=== PATIENT | female | born 1965 | race Caucasian/White ===

== ENCOUNTER 2016-07-17 14:05 | Emergency (ER) | payer MEDICARE, OTHER, SELFPAY ==
[2016-07-17 14:37] LABS: #Basophils 0.1 thou/uL (0.0-0.2); #Eosinphils 0.2 thou/uL (0.0-0.7); #Lymphocytes 2.6 thou/uL (1.20-3.40); #Monocytes 0.7 thou/uL (0.11-0.59); #Neutrophils 4.3 thou/uL (1.40-6.50); %Eosinophils 2.3 % (0.0-10.0); %Lymphocytes 33.5 % (21.0-51.0); %Monocytes 8.5 % (0.0-10.0); %Neutrophils 54.7 % (42.0-75.0); Hemoglobin 13.9 g/dL (12.0-16.0); Mean Corpuscular HGB CONC 33.6 g/dL (32.0-36.0); Mean Corpuscular Hemoglobin 29.7 pg (27.0-31.0); Mean Corpuscular Volume 88.3 fl (81.0-99.0); Mean Platelet Volume 10.2 fL (7.4-10.4); Platelet Count 238 thou/uL (130-400); RBC Distribution Width 11.8 % (11.5-14.5); Red Blood Cell (RBC) Count 4.68 mill/uL (4.20-5.40); White Blood Cell (WBC) Count 7.9 thou/uL (4.8-10.8)
[2016-07-17] MEDS ORDERED: Nitroglycerin 2% Ointment 1 INCH/1 GM Packet ONE (14:52)
--- NOTE | 2016-07-17 14:53 | RAD ---
AP CHEST: History: Chest pain. Date: 07-17-16 Comparison: 10-24-13 FINDINGS: AP view of the chest demonstrates the lungs to be well aerated. No evidence of active intrathoracic disease seen. No evidence of effusions, pneumonia, or pneumothorax is seen. IMPRESSION: Unremarkable AP view chest. POS: MED
[2016-07-17 14:58] LABS: CKMB 1.3 ng/mL (0-6.6); Troponin I Less than 0.010 ng/mL (< 0.028)
[2016-07-17 14:59] LABS: ALT (SGPT) 49 U/L (0-55); AST (SGOT) 31 U/L (5-34); Albumin 4.4 g/dL (3.5-5.0); Alkaline Phosphatase 112 U/L (40-150); Anion Gap 19 mmol/L (10-20); BUN (Urea Nitrogen) 16 mg/dL (9.8-20.1); Bilirubin, Total 0.9 mg/dL (0.2-1.2); Calc. Creatinine Clearance 0 mL/min (70-130); Calcium 10.4 mg/dL (7.8-10.44); Carbon Dioxide 23 mmol/L (22-29); Chloride 103 mmol/L (98-107); Estimated GFR-MDRD 59; Globulin 2.9 g/dL (2.4-3.5); Glucose 101 mg/dL (70-105); Magnesium 1.9 mg/dL (1.6-2.6); Potassium 3.7 mmol/L (3.5-5.1); Protein, Total 7.3 g/dL (6.0-8.3); Sodium 141 mmol/L (136-145)
[2016-07-17] MEDS ORDERED: Morphine Sulfate 2 MG/ML SYRINGE ONE (16:07)
--- NOTE | 2016-07-17 17:44 | ERRECORD ---
[facility] EMERGENCY RECORD HPI CHEST PAIN (14:23 ABUS) CHIEF COMPLAINT: Patient presents for evaluation of chest pain, ongoing. HISTORIAN: History provided by patient, History provided by patient's spouse, 51 yr old F with PMH of HLD who comes in with reports of ongoing chest pain (pressure/ache) that started today around 1-1:30 while she was sleeping and radiates to the neck, shoulder, left arm, but is not associated with N/V, SOB or sweating. She took 324 mg ASA and tried 3 NTG which brought pain from 8 - 6/10. + FHx of Mom and dad with early CVD < 55 yrs of age. LOCATION: Symptoms are localized, most severe in substernal area, Pain radiates, Radiation to the jaw, Radiation to the neck, Radiation to the shoulder. QUALITY: Pain is dull in nature, described as pressure-like. SEVERITY: Currently symptoms are moderate, Maximum severity of pain rated as 8/10, Current severity of pain rated as 6/10. TIME COURSE: Sudden onset of symptoms, Symptoms are improving. ASSOCIATED WITH: No associated symptoms. EXACERBATED BY: Patient's condition exacerbated by nothing. RELIEVED BY: Patient's condition relieved by nothing. RISK FACTORS: Coronary artery disease risk factors, no diabetes, include family history, include high cholesterol. HEART SCORE: Patients history is Highly Suspicious (2), Patients ECG is normal (0), Patients age is greater than 45 and less than 65 (1), Patient has equal to or greater than 3 risk factors or history of atherosclerotic disease (2), Patients Troponin is equal to or less than 1 times the normal limit (0), Total 5. WELLS CRITERIA FOR PE: No clinical signs and symptoms of a DVT (0), Patient does not have, or is likely to not have, a primary diagnosis of PE (0), Patient's heart rate is less than 100 (0), Patient has no history of immobilization within 3 days, nor any surgical history within the past 4 weeks (0), Patient has not had an objectively diagnosed PE or DVT previously (0), Patient does not have hemoptysis (0), Patient has not had treatment for malignancy within the last 6 months, nor palliative (0), Total 0. ROS (14:26 ABUS) CONSTITUTIONAL: Negative constitutional review of systems, Historian denies chills, denies fever. EYES: Negative eye review of systems, Historian denies eye pain, denies vision changes. ENT: Negative ears, nose, throat review of systems, Historian denies rhinorrhea, denies sore throat, denies voice changes. CARDIOVASCULAR: Historian reports chest pain, substernal, radiation to, the neck, &a-1R&a+25V*p+0X*x1789I*c202B*c15G*c2P*p-0X&a-25V&a+1R Name: Beulah uQiroz : 1965 F51 MedRec: [id number] AcctNum: [id number] Prepared: SatJul 17, 2016 18:00 by Interface Page 1 of 5 pMD [facility] EMERGENCY RECORD the jaw, the back, Historian denies diaphoresis, denies dyspnea on exertion, denies edema, denies palpitations. RESPIRATORY: Negative respiratory review of systems, Historian denies cough, denies shortness of breath. GI: Negative gastrointestinal review of systems, Historian denies abdominal pain, denies constipation, denies diarrhea, denies nausea, denies vomiting. GENITOURINARY FEMALE: Negative genitourinary review of systems, Historian denies dysuria, denies frequency. MUSCULOSKELETAL: Negative musculoskeletal review of systems, Historian denies back pain, denies fall, denies injury. SKIN: Negative skin review of systems, Historian denies rash, denies skin changes. NEUROLOGIC: Negative neurologic review of systems, Historian denies headache, denies mental status changes, denies paralysis, denies paresthesias, denies sensory changes. HEMO/LYMPHATIC: Normal hematologic/lymphatic system review, Historian denies abnormal blood clotting. ALLERGIC/IMMUNOLOGIC: Normal allergy/immunologic system review, Historian denies frequent infections. PAST MEDICAL HISTORY (14:16 AWAT) MEDICAL HISTORY: Past medical history includes history of hyperlipidemia, high cholesterol, Past medical history includes neurological disease, generalized seizures, Past medical history includes renal disease, kidney stone(s). RIGHT CAROTID STENOSIS. FEMALE SURGICAL HISTORY: Surgical history of appendectomy, Surgical history of cholecystectomy, Surgical history of tonsillectomy, prior fusions of c- spine and t-spine. PSYCHIATRIC HISTORY: Notes: DEPRESSION, No previous psychiatric history. SOCIAL HISTORY: Patient denies alcohol use, Patient denies drug use, Patient has no smoking history. KNOWN ALLERGIES Penicillins: Reaction: Rash CURRENT MEDICATIONS No recorded medications VITAL SIGNS VITAL SIGNS: BP: 140/78, Pulse: 93, Resp: 18, Temp: 98.9 (Tympanic), Pain: 6 (Constant), O2 sat: 94 on Room Air, Time: 07/17/2016 14:14. (14:14 AWAT) BP: 137/72, Pulse: 84, Resp: 18, Pain: 6, O2 sat: 95 on Room Air, Time: 07/17/2016 14:30. (14:30 AWAT) BP: 134/72, Pulse: 83, Resp: 16, Pain: 5 (Constant), O2 sat: 98 on 2L Oxygen, Time: 07/17/2016 14:45. (14:45 AWAT) BP: 127/77, Pulse: 88, Resp: 17, Pain: 5, O2 sat: 99 on 2L Oxygen, Time: 07/17/2016 15:00. (15:00 AWAT) &a-1R&a+25V*p+0X*p7400D*c202B*c15G*c2P*p-0X&a-25V&a+1R Name: Beulah Quiroz : 1965 F51 MedRec: [id number] AcctNum: [id number] Prepared: Fan Jul 17, 2016 18:00 by Interface Page 2 of 5 pMD [facility] EMERGENCY RECORD BP: 142/74, Pulse: 94, Resp: 20, Pain: 5 (Constant), O2 sat: 98 on Room Air, Time: 07/17/2016 15:15. (15:15 AWAT) BP: 119/73, Pulse: 95, Resp: 16, Temp: 98.0 (Tympanic), Pain: 2 (Constant), O2 sat: 99 on 2L Oxygen, Time: 07/17/2016 15:30. (15:30 AWAT) Pain: 0, O2 sat: 99 on 2L, Time: 07/17/2016 17:20. (17:20 AWAT) Pain: 0, Time: 07/17/2016 16:00. (16:00 AWAT) PHYSICAL EXAM (14:26 ABUS) CONSTITUTIONAL: Vital signs reviewed, Patient afebrile, Pulse normal, Blood pressure normal, Respiratory rate normal, Patient appears non toxic, Patient appears pain free, Patient alert and oriented to person, place and time. HEAD: Head exam normal, Head exam included findings of head atraumatic, normocephalic. EYES: Eye exam normal, Eye exam included findings of eyelids normal to inspection, Pupils equally round and reactive to light, Extraocular muscles intact, no nystagmus. ENT: ENT exam normal, Ear exam normal, external ear normal, tympanic membranes normal, no bleeding, Pharynx exam normal, Uvula exam normal, Tonsil exam normal, Mouth exam normal, mucous membranes moist, teeth normal. NECK: Neck exam normal, Neck exam included findings of normal range of motion, Trachea midline, no meningeal signs, no cervical adenopathy, no tenderness. RESPIRATORY CHEST: Respiratory and chest exam normal, Respiratory exam included findings of no respiratory distress, Breath sounds clear. CARDIOVASCULAR: Cardiovascular assessment normal, Cardiovascular exam included findings of heart rate regular rate and rhythm, Heart sounds normal. ABDOMEN FEMALE: Abdominal exam included findings of abdomen nontender, Bowel sounds normal, no distension, no mass, no pulsatile masses, no peritoneal signs, no rigidity, no guarding, no rebound, Rovsing's sign absent. BACK: Back exam normal, Back exam included findings of normal inspection, range of motion normal, no tenderness. UPPER EXTREMITY: Upper extremity exam normal, Upper extremity exam included findings of inspection normal, Range of motion normal, Motor strength normal, Sensation intact, Radial pulse normal. LOWER EXTREMITY: Lower extremity exam normal, Lower extremity exam included findings of inspection normal, Range of motion normal, Motor strength normal, Sensation intact, Posterior tibial pulse normal, Pedal pulse normal. NEURO: Neuro exam normal, Neuro exam findings include patient oriented to person, place and time, Speech normal, Gait normal, Cranial nerves intact, no focal motor deficits, no focal sensory deficits. SKIN: Skin exam normal, Skin exam included findings of skin warm, dry, and normal in color, no rash. &a-1R&a+25V*p+0X*f0418P*c202B*c15G*c2P*p-0X&a-25V&a+1R Name: Beulah Quiroz : 1965 F51 MedRec: [id number] AcctNum: [id number] Prepared: Fan Jul 17, 2016 18:00 by Interface Page 3 of 5 pMD [facility] EMERGENCY RECORD PSYCHIATRIC: Psychiatric exam normal, Normal affect. EKG INTERPRETATION (14:22 ABUS) 12 LEAD EKG INTERPRETATION: 12 lead EKG interpreted by Emergency Department Physician at time of study, 12 lead EKG shows normal sinus rhythm, Rate (beats per minute): 87, with no ectopics, Interpretation: normal EKG, Conduction normal, ST segments normal, T waves normal, [place] normal, Clinical impression: Normal EKG. RADIOLOGYINTERPRETATION (16:02 ABUS) CHEST: Chest films negative, no infiltrates, no pneumothorax, no hemothorax, no masses, no cardiomegaly, no congestive heart failure, no effusion, no free air. EMBEDDED SOFTWARE DEVELOPMENT ENGINEER: Preliminary review of x-rays by, ED Physician, Radiologist. MEDICATION ADMINISTRATION SUMMARY Drug Name: morphine (PF) injection, Dose Ordered: 2 mg, Route: IV Push, Status: Given, Time: 16:10 07/17/2016, Drug Name: Nitro-Bid transdermal, Dose Ordered: 1 inch, Route: Topical, Status: Given, Time: 14:55 07/17/2016, Drug Name: morphine (PF) injection, Dose Ordered: 4 mg, Route: IV Push, Status: Given, Time: 14:55 07/17/2016, Detailed record available in Medication Service section. DOCTOR NOTES (14:30 ABUS) TEXT: 51 yr old F with PMH of HLD who comes in with reports of ongoing chest pain (pressure/ache) that started today around 1-1:30 while she was sleeping and radiates to the neck, shoulder, left arm, but is not associated with N/V, SOB or sweating. EXAM: Mild distress DDX: Acute Coronary Syndrome, Unstable Angina, NSTEMI, Pericarditis, Myocarditis, Pulmonary Embolism, Musculoskeletal Chest Wall Pain, Pleuritis. PLAN: IV, IV Fluids, CBC, CMP, BNP, Troponins, UA, NTG, Antiemetics, Analgesics, ECG, CXR, Analgesics as needed. Aspirin already taken [employer] SUPERINTENDENT by patient. Final Dispo: Transfer to [place] Level of Complexity / Medical Decision Making: Moderate. PROBLEM LIST No recorded problems DIAGNOSIS (17:36 ABUS) FINAL: PRIMARY: Chest pain. PRESCRIPTION No recorded prescriptions &a-1R&a+25V*p+0X*[id number]*c202B*c15G*c2P*p-0X&a-25V&a+1R Name: Beulah Quiroz : 1965 1 MedRec: [id number] AcctNum: [id number] Prepared: SatJul 17, 2016 18:00 by Interface Page 4 of 5 pMD [facility] EMERGENCY RECORD DISPOSITION PATIENT: Disposition Type: Transfer, Disposition: Transfer to [facility], Disposition Transport: Ambulance, Condition: Good. (17:36 ABUS) Patient left the department. (17:55 AWAT) Aceves: ABUS=MD Nash, Clem AWAT=RENEA Smith, Bruce &a-1R&a+25V*p+0X*[id number]*c202B*c15G*c2P*p-0X&a-25V&a+1R Name: Beulah Quiroz : 1965 [facility] MedRec: [id number] AcctNum: [id number] Prepared: SatJul 17, 2016 18:00 by Interface Page 5 of 5 pMD MTDD
--- NOTE | 2016-07-17 17:49 | PICIS ---
HEALTH SYSTEM EMERGENCY RECORD COMMUNICATIONS COMMUNICATIONS: Notes: TRANSFER PROCESS BEGAN NOW WITH PT REQUESTING [facility]. (15:20 AWAT) Notes: PT'S ER RECORD & FACE SHEET FAXED TO [facility] NOW PER THEIR REQUEST... (15:42 AWAT) Notes: STILL AWAITING CALLBACK FROM [facility]. (16:46 AWAT) Notes: [facility] REFUSED PT DUE TO HER ONLY HAVING MEDICARE PART A. DISCUSSED W PT. CHANGED DESTINATIONS TO [facility] ER.. (16:50 AWAT) Notes: DR COBURN AT [facility] ER IN [place] ACCEPTS PT FOR TRANSFER AT THIS TIME. (16:58 AWAT) TRIAGE (SatJul 17, 2016 14:10 AWAT) TRIAGE NOTES: CP-SUBSTERNAL & RADIATING TO LEFT JAW & LEFT ARM THAT STARTED AT 1315 TODAY. SHE TOOK 325MG ASA, THEN 3 NTG TABLETS WITHOUT RELIEF. PAIN 6 OR 7/10. (SatJul 17, 2016 14:10 AWAT) PATIENT: NAME: Beulah Quiroz, AGE: 51, GENDER: female, : Sat1965, TIME OF GREET: SatJul 17, 2016 14:05, PREFERRED LANGUAGE: Frisian, ETHNICITY: Not or , FALL RISK: YES, ECODE BILLING MAP: [facility], SSN: [id number], Zip Code: [address], KG WEIGHT: 81.65 (est.), PHONE: , , , PERSON ID: [id number], PCP: GEORGE . (SatJul 17, 2016 14:10 AWAT) COMPLAINT: HIGH RISK COMPLAINT: CHEST PAIN. (SatJul 17, 2016 14:10 AWAT) ADMISSION: URGENCY: 3 Urgent, ADMISSION SOURCE: Home, TRANSPORT: Walk-in, BED: TRIAGE. (SatJul 17, 2016 14:10 AWAT) IMMUNIZATIONS: Flu vaccine up to date, Date of immunization: 2015, Tetanus immunization up to date, Date of immunization: 2012. (14:16 AWAT) SIRS SCORING: Heart Rate 55-109 (0), Temp range 96.8-101.1 (0), respiratory rate 12-24 (0), Mental Status altered: no (0). (14:16 AWAT) TREATMENTS IN PROGRESS: Medications Given, 325MG ASA, AND 3 NTG TABLETS AT HOME. (14:16 AWAT) PROVIDERS: TRIAGE NURSE: Bruce Smith RN. (SatJul 17, 2016 14:10 AWAT) PREVIOUS VISIT ALLERGIES: Penicillins. (SatJul 17, 2016 14:10 AWAT) Penicillins. (14:16 AWAT) KNOWN ALLERGIES Penicillins: Reaction: Rash CURRENT MEDICATIONS No recorded medications VITAL SIGNS VITAL SIGNS: BP: 140/78, Pulse: 93, Resp: 18, Temp: 98.9 (Tympanic), Pain: 6 (Constant), O2 sat: 94 on Room Air, Time: &a-1R&a+25V*p+0X*b9790I*c202B*c15G*c2P*p-0X&a-25V&a+1R Name: Beulah Quiroz : 1965 F51 MedRec: [id number] AcctNum: [id number] Prepared: SatJul 17, 2016 18:07 by Interface Page 1 of 12 [facility] EMERGENCY RECORD 07/17/2016 14:14. (14:14 AWAT) BP: 137/72, Pulse: 84, Resp: 18, Pain: 6, O2 sat: 95 on Room Air, Time: 07/17/2016 14:30. (14:30 AWAT) BP: 134/72, Pulse: 83, Resp: 16, Pain: 5 (Constant), O2 sat: 98 on 2L Oxygen, Time: 07/17/2016 14:45. (14:45 AWAT) BP: 127/77, Pulse: 88, Resp: 17, Pain: 5, O2 sat: 99 on 2L Oxygen, Time: 07/17/2016 15:00. (15:00 AWAT) BP: 142/74, Pulse: 94, Resp: 20, Pain: 5 (Constant), O2 sat: 98 on Room Air, Time: 07/17/2016 15:15. (15:15 AWAT) BP: 119/73, Pulse: 95, Resp: 16, Temp: 98.0 (Tympanic), Pain: 2 (Constant), O2 sat: 99 on 2L Oxygen, Time: 07/17/2016 15:30. (15:30 AWAT) Pain: 0, O2 sat: 99 on 2L, Time: 07/17/2016 17:20. (17:20 AWAT) Pain: 0, Time: 07/17/2016 16:00. (16:00 AWAT) NURSING ASSESSMENT: CARDIOVASCULAR (14:30 AWAT) CONSTITUTIONAL: Simple assessment performed, Patient arrives ambulatory, Gait steady, History obtained from patient, Patient appears comfortable, Patient cooperative, Patient alert, Oriented to person, place and time, Skin warm, Skin dry, Skin normal in color, Mucous membranes pink, Mucous membranes moist, Patient is well-groomed, Patient complains of CHEST PAIN RADIATING TO LEFT JAW & LEFT ARM. PAIN: aching pain, substernal, to the left arm, to the jaw, Onset of pain 07/17/2016 1315, constant, on a scale 0-10 patient rates pain as 6, UNRELIEVED BY 3 NITRO'S AND ASPIRIN 325MG AT HOME. CARDIOVASCULAR: Cardiovascular assessment findings include heart rate normal, Heart rhythm normal sinus, Heart sounds normal, S1, S2, Left radial pulse +3(easily palpated, considered normal), Right radial pulse +3(easily palpated, considered normal), Left dorsalis pedis pulse +3(easily palpated, considered normal), Right dorsalis pedis pulse +3(easily palpated, considered normal). RESPIRATORY/CHEST: Breath sounds clear, Respiratory assessment findings include respiratory effort easy, Respirations regular, Conversing normally, Neck and chest exam findings include trachea midline, Chest expansion equal, Chest movement symmetrical. NOTES: Emotional support needed and given, Patient tolerated procedure well. SAFETY: Side rails up, Cart/Stretcher in lowest position, Family at bedside, Call light within reach, Hospital ID band on, Physician notified of above findings. NURSING PROCEDURE: EKG CHART (14:15 AWAT) PATIENT IDENTIFIER: Patient actively involved in identification process, Patient's identity verified by patient stating name, Patient's identity verified by patient stating date, Patient's identity verified by hospital ID bracelet, Patient's identity verified by family member. &a-1R&a+25V*p+0X*e4800V*c202B*c15G*c2P*p-0X&a-25V&a+1R Name: Beulah Quiroz : 1965 F51 MedRec: [id number] AcctNum: [id number] Prepared: Fan Jul 17, 2016 18:07 by Interface Page 2 of 12 [facility] EMERGENCY RECORD EKG: EKG indicated for complaint of chest pain. FOLLOW-UP: After procedure, EKG for interpretation given to Dr. TURNER. NOTES: Patient tolerated procedure well. SAFETY: Side rails up, Cart/Stretcher in lowest position, Family at bedside, Call light within reach, Hospital ID band on, Physician notified of above findings. NURSING PROCEDURE: IV PATIENT IDENITIFIER: Patient actively involved in identification process, Patient's identity verified by patient stating name, Patient's identity verified by patient stating date, Patient's identity verified by hospital ID bracelet, Patient's identity verified by family member. (14:30 AWAT) IV SITE 1: IV therapy indicated for CHEST PAIN, IV established, to the right antecubital, using a 20 gauge catheter, in one attempt, IV site prepped with chloraprep, Saline lock established, Flushed with normal saline (mls): 10, Labs drawn at time of placement, labeled in the presence of the patient and sent to lab. (14:30 AWAT) FOLLOW-UP SITE 1: After procedure, sterile transparent dressing applied, Notes: INTACT FOR TRANSPORT. PATENT. (17:20 AWAT) NOTES: Patient tolerated procedure well. (14:30 AWAT) SAFETY: Side rails up, Cart/Stretcher in lowest position, Family at bedside, Call light within reach, Hospital ID band on, Physician notified of above findings. (14:30 AWAT) NURSING PROCEDURE: TRANSFER (17:20 AWAT) TRANSFER: Reason for transfer need for specialized care, Diagnosis: CP, R/O ACS, Accepting institution: [facility] ER, Accepting physician: ALMAS, Referring physician: YUE, Transported by urgent ambulance, accompanied by emergency medical services personnel, Report called to receiving facility, BRIANNA, Provided opportunity to answer questions, Summary of Care printed, Copy of patient record prepared for receiving facility, Patient consent for transfer signed, Family member contacted, ARCHANA-SPOUSE. BELONGINGS: Belongings remain with patient, Valuables remain with patient, Notes: SPOUSE TOOK HER CLOTHES & SHOES HOME. PT KEPT HER PHONE. EQUIPMENT WITH PATIENT: Equipment with patient at time of transfer materials management manager, Saline lock intact and patent at time of transfer, Equipment with patient at time of transfer O2. NOTES: Patient tolerated procedure well. SAFETY: Side rails up, Cart/Stretcher in lowest position, Family at bedside, Call light within reach, Hospital ID band on, Physician notified of above findings. VITAL SIGNS: Time: 1720. Pain: 0, O2 sat: 99, on: 2L, Time: 1720. ORDER DETAILS &a-1R&a+25V*p+0X*k1845F*c202B*c15G*c2P*p-0X&a-25V&a+1R Name: Beulah Quiroz : 1965 F51 MedRec: [id number] AcctNum: [id number] Prepared: SatJul 17, 2016 18:07 by Interface Page 3 of 12 [facility] Order Name: B type Natriuretic Peptide, Status: Active, Time: 14:12 07/17/2016, User: ABUS, - Ordered for: MD Turner Anthony, - Entered by: MD Turner Anthony - SatJul 17, 2016 14:12, - Quantity: 1, Order Name: [employer] ED, Status: Done, Time: 14:16 07/17/2016, User: AWAT, - Ordered for: MD Turner Anthony, - Entered by: MD Turner Anthony - SatJul 17, 2016 14:12, - Quantity: 1, Order Name: Cardiac Profile w/CKMB & Troponin - I, Status: Active, Time: 14:12 07/17/2016, User: ABUS, - Ordered for: MD Turner Anthony, - Entered by: MD Turner Anthony - SatJul 17, 2016 14:12, - Quantity: 1, Order Name: CBC with Differential, Status: Active, Time: 14:12 07/17/2016, User: ABUS, - Ordered for: MD Turner Anthony, - Entered by: MD Turner Anthony - SatJul 17, 2016 14:12, - Quantity: 1, Order Name: Comprehensive Metabolic Panel, Status: Active, Time: 14:12 07/17/2016, User: ABUS, - Ordered for: MD Turner Anthony, - Entered by: MD Turner Anthony - fadia Jul 17, 2016 14:12, - Quantity: 1, Order Name: EKG 12 Lead in Emergency Room, Status: Active, Time: 14:12 07/17/2016, User: ABUS, - Ordered for: MD Turner Anthony, - Entered by: MD Turner Anthony - fadia Jul 17, 2016 14:12, - Quantity: 1, Order Name: Magnesium, Status: Active, Time: 14:12 07/17/2016, User: ABUS, - Ordered for: MD Turner Anthony, - Entered by: MD Turner Anthony - Tue Jul 17, 2016 14:12, - Quantity: 1, Order Name: PTT, Status: Active, Time: 14:12 07/17/2016, User: ABUS, - Ordered for: MD Turner Anthony, - Entered by: MD Turner Anthony - fadia Jul 17, 2016 14:12, - Quantity: 1, Order Name: SALINE LOCK, Status: Done, Time: 14:17 07/17/2016, User: AWAT, - Ordered for: MD Turner Anthony, - Entered by: MD Turner Anthony - fadia Jul 17, 2016 14:12, - Quantity: 1, Order Name: XR Chest 1 View Portable, Status: Active, Time: 14:12 07/17/2016, User: AB, - Ordered for: MD Turner Anthony, - Entered by: MD Turner Anthony - fadia Jul 17, 2016 14:12, - Quantity: 1. &a-1R&a+25V*p+0X*g0082G*c202B*c15G*c2P*p-0X&a-25V&a+1R Name: Beulah Quiroz : 1965 F51 MedRec: [id number] AcctNum: [id number] Prepared: SatJul 17, 2016 18:07 by Interface Page 4 of 12 [facility]ORD MEDICATION ADMINISTRATION SUMMARY Drug Name: morphine (PF) injection, Dose Ordered: 2 mg, Route: IV Push, Status: Given, Time: 16:10 07/17/2016, Drug Name: Nitro-Bid transdermal, Dose Ordered: 1 inch, Route: Topical, Status: Given, Time: 14:55 07/17/2016, Drug Name: morphine (PF) injection, Dose Ordered: 4 mg, Route: IV Push, Status: Given, Time: 14:55 07/17/2016, Detailed record available in Medication Service section. MEDICATION SERVICE morphine (PF) injection: Order: morphine (PF) injection (morphine sulfate/preservative free) - Dose: 4 mg : IV Push Schedule: Now Ordered by: Clem Turner MD Entered by: Clem Turner MD SatJul 17, 2016 14:22 , Acknowledged by: Bruce Smith RN SatJul 17, 2016 14:50 Documented as given by: Bruce Smith RN Jul 17, 2016 14:55 Patient, Medication, Dose, Route and Time verified prior to administration. Amount given: 4MG, IV SITE #1 IVP, initial medication, Slowly, Catheter placement confirmed via flush prior to administration, IV site without signs or symptoms of infiltration during medication administration, No swelling during administration, No drainage during administration, IV flushed after administration, Correct patient, time, route, dose and medication confirmed prior to administration, Patient advised of actions and side-effects prior to administration, Allergies confirmed and medications reviewed prior to administration, Administered by AW, Patient in position of comfort, Side rails up, Cart in lowest position, Family at bedside. morphine (PF) injection: Order: morphine (PF) injection (morphine sulfate/preservative free) - Dose: 2 mg : IV Push Schedule: Now Ordered by: Clem Turner MD Entered by: Clem Turner MD SatJul 17, 2016 16:03 , Acknowledged by: Bruce Smith RN SatJul 17, 2016 16:07 Documented as given by: Bruce Smith RN SatJul 17, 2016 16:10 Patient, Medication, Dose, Route and Time verified prior to administration. Amount given: 2MG, IV SITE #1 IVP, repeat same medication, Slowly, Catheter placement confirmed via flush prior to administration, IV site without signs or symptoms of infiltration during medication administration, No swelling during administration, No drainage during administration, IV flushed after administration, Correct patient, time, route, dose and medication confirmed prior to administration, Patient advised of actions and side-effects prior to administration, Allergies confirmed and medications reviewed prior to administration, Administered by YENY MEIER, Patient in position of comfort, Side rails up, Cart in lowest position, Family at bedside. Nitro-Bid transdermal: Order: Nitro-Bid transdermal &a-1R&a+25V*p+0X*q2317S*c202B*c15G*c2P*p-0X&a-25V&a+1R Name: Beulah Quiroz : 1965 F51 MedRec: [id number] AcctNum: [id number] Prepared: SatJul 17, 2016 18:07 by Interface Page 5 of 12 [facility] EMERGENCY [facility]ORD (nitroglycerin) - Dose: 1 inch : Topical Schedule: Now Ordered by: Clem Turner MD Entered by: Clem Turner MD SatJul 17, 2016 14:23 , Acknowledged by: Bruce Smith RN SatJul 17, 2016 14:50 Documented as given by: Bruce Smith RN Jul 17, 2016 14:55 Patient, Medication, Dose, Route and Time verified prior to administration. Amount given: 1 INCH, Skin cleansed prior to administration, Shaving required prior to administration, Correct patient, time, route, dose and medication confirmed prior to administration, Patient advised of actions and side-effects prior to administration, Allergies confirmed and medications reviewed prior to administration, Administered by YENY MEIER, Advised not to ambulate without assistance, Patient in position of comfort, Side rails up, Cart in lowest position, Family at bedside. HPI CHEST PAIN (14:23 ABUS) CHIEF COMPLAINT: Patient presents for evaluation of chest pain, ongoing. HISTORIAN: History provided by patient, History provided by patient's spouse, 51 yr old F with PMH of HLD who comes in with reports of ongoing chest pain (pressure/ache) that started today around 1-1:30 while she was sleeping and radiates to the neck, shoulder, left arm, but is not associated with N/V, SOB or sweating. She took 324 mg ASA and tried 3 NTG which brought pain from 8 - 12/01. + FHx of Mom and dad with early CVD < 55 yrs of age. LOCATION: Symptoms are localized, most severe in substernal area, Pain radiates, Radiation to the jaw, Radiation to the neck, Radiation to the shoulder. QUALITY: Pain is dull in nature, described as pressure-like. SEVERITY: Currently symptoms are moderate, Maximum severity of pain rated as 8/10, Current severity of pain rated as 6/10. TIME COURSE: Sudden onset of symptoms, Symptoms are improving. ASSOCIATED WITH: No associated symptoms. EXACERBATED BY: Patient's condition exacerbated by nothing. RELIEVED BY: Patient's condition relieved by nothing. RISK FACTORS: Coronary artery disease risk factors, no diabetes, include family history, include high cholesterol. HEART SCORE: Patients history is Highly Suspicious (2), Patients ECG is normal (0), Patients age is greater than 45 and less than 65 (1), Patient has equal to or greater than 3 risk factors or history of atherosclerotic disease (2), Patients Troponin is equal to or less than 1 times the normal limit (0), Total 5. WELLS CRITERIA FOR PE: No clinical signs and symptoms of a DVT &a-1R&a+25V*p+0X*y6944Z*c202B*c15G*c2P*p-0X&a-25V&a+1R Name: Beulah Quiroz : 1965 F51 MedRec: [id number] AcctNum: [id number] Prepared: Fan Jul 17, 2016 18:07 by Interface Page 6 of 12 [facility]ORD (0), Patient does not have, or is likely to not have, a primary diagnosis of PE (0), Patient's heart rate is less than 100 (0), Patient has no history of immobilization within 3 days, nor any surgical history within the past 4 weeks (0), Patient has not had an objectively diagnosed PE or DVT previously (0), Patient does not have hemoptysis (0), Patient has not had treatment for malignancy within the last 6 months, nor palliative (0), Total 0. ROS (14:26 ABUS) CONSTITUTIONAL: Negative constitutional review of systems, Historian denies chills, denies fever. EYES: Negative eye review of systems, Historian denies eye pain, denies vision changes. ENT: Negative ears, nose, throat review of systems, Historian denies rhinorrhea, denies sore throat, denies voice changes. CARDIOVASCULAR: Historian reports chest pain, substernal, radiation to, the neck, the jaw, the back, Historian denies diaphoresis, denies dyspnea on exertion, denies edema, denies palpitations. RESPIRATORY: Negative respiratory review of systems, Historian denies cough, denies shortness of breath. GI: Negative gastrointestinal review of systems, Historian denies abdominal pain, denies constipation, denies diarrhea, denies nausea, denies vomiting. GENITOURINARY FEMALE: Negative genitourinary review of systems, Historian denies dysuria, denies frequency. MUSCULOSKELETAL: Negative musculoskeletal review of systems, Historian denies back pain, denies fall, denies injury. SKIN: Negative skin review of systems, Historian denies rash, denies skin changes. NEUROLOGIC: Negative neurologic review of systems, Historian denies headache, denies mental status changes, denies paralysis, denies paresthesias, denies sensory changes. HEMO/LYMPHATIC: Normal hematologic/lymphatic system review, Historian denies abnormal blood clotting. ALLERGIC/IMMUNOLOGIC: Normal allergy/immunologic system review, Historian denies frequent infections. PAST MEDICAL HISTORY (14:16 AWAT) MEDICAL HISTORY: Past medical history includes history of hyperlipidemia, high cholesterol, Past medical history includes neurological disease, generalized seizures, Past medical history includes renal disease, kidney stone(s). RIGHT CAROTID STENOSIS. FEMALE SURGICAL HISTORY: Surgical history of appendectomy, Surgical history of cholecystectomy, Surgical history of tonsillectomy, prior fusions of c- spine and t-spine. PSYCHIATRIC HISTORY: Notes: DEPRESSION, No previous psychiatric history. SOCIAL HISTORY: Patient denies alcohol use, Patient denies drug use, Patient has no smoking history. &a-1R&a+25V*p+0X*w8045P*c202B*c15G*c2P*p-0X&a-25V&a+1R Name: Beulah Quiroz : 1965 F51 MedRec: [id number] AcctNum: [id number] Prepared: SatJul 17, 2016 18:07 by Interface Page 7 of 12 [facility] EMERGENCY RECORD PHYSICAL EXAM (14:26 ABUS) CONSTITUTIONAL: Vital signs reviewed, Patient afebrile, Pulse normal, Blood pressure normal, Respiratory rate normal, Patient appears non toxic, Patient appears pain free, Patient alert and oriented to person, place and time. HEAD: Head exam normal, Head exam included findings of head atraumatic, normocephalic. EYES: Eye exam normal, Eye exam included findings of eyelids normal to inspection, Pupils equally round and reactive to light, Extraocular muscles intact, no nystagmus. ENT: ENT exam normal, Ear exam normal, external ear normal, tympanic membranes normal, no bleeding, Pharynx exam normal, Uvula exam normal, Tonsil exam normal, Mouth exam normal, mucous membranes moist, teeth normal. NECK: Neck exam normal, Neck exam included findings of normal range of motion, Trachea midline, no meningeal signs, no cervical adenopathy, no tenderness. RESPIRATORY CHEST: Respiratory and chest exam normal, Respiratory exam included findings of no respiratory distress, Breath sounds clear. CARDIOVASCULAR: Cardiovascular assessment normal, Cardiovascular exam included findings of heart rate regular rate and rhythm, Heart sounds normal. ABDOMEN FEMALE: Abdominal exam included findings of abdomen nontender, Bowel sounds normal, no distension, no mass, no pulsatile masses, no peritoneal signs, no rigidity, no guarding, no rebound, Rovsing's sign absent. BACK: Back exam normal, Back exam included findings of normal inspection, range of motion normal, no tenderness. UPPER EXTREMITY: Upper extremity exam normal, Upper extremity exam included findings of inspection normal, Range of motion normal, Motor strength normal, Sensation intact, Radial pulse normal. LOWER EXTREMITY: Lower extremity exam normal, Lower extremity exam included findings of inspection normal, Range of motion normal, Motor strength normal, Sensation intact, Posterior tibial pulse normal, Pedal pulse normal. NEURO: Neuro exam normal, Neuro exam findings include patient oriented to person, place and time, Speech normal, Gait normal, Cranial nerves intact, no focal motor deficits, no focal sensory deficits. SKIN: Skin exam normal, Skin exam included findings of skin warm, dry, and normal in color, no rash. PSYCHIATRIC: Psychiatric exam normal, Normal affect. EVENTS TRANSFER: Triage to Emergency Triage. (SatJul 17, 2016 14:10 AWAT) Emergency Triage to Main ED -03. (14:11 AWAT) Emergency Main ED -03 to [facility]. (17:23 SFRE) &a-1R&a+25V*p+0X*b8586M*c202B*c15G*c2P*p-0X&a-25V&a+1R Name: Beulah Quiroz : 1965 F51 MedRec: [id number] AcctNum: [id number] Prepared: Fan Jul 17, 2016 18:07 by Interface Page 8 of 12 [facility] EM[facility]GENC[facility]ORD Removed from Emergency Holding. (17:55 AWAT) RADIOLOGYINTERPRETATION (16:02 ABUS) CHEST: Chest films negative, no infiltrates, no pneumothorax, no hemothorax, no masses, no cardiomegaly, no congestive heart failure, no effusion, no free air. [employer]ATRA OPENER: Preliminary review of x-rays by, ED Physician, Radiologist. EKG INTERPRETATION (14:22 ABUS) 12 LEAD EKG INTERPRETATION: 12 lead EKG interpreted by Emergency Department Physician at time of study, 12 lead EKG shows normal sinus rhythm, Rate (beats per minute): 87, with no ectopics, Interpretation: normal EKG, Conduction normal, ST segments normal, T waves normal, [place] normal, Clinical impression: Normal EKG. DOCTOR NOTES (14:30 ABUS) TEXT: 51 yr old F with PMH of HLD who comes in with reports of ongoing chest pain (pressure/ache) that started today around 1-1:30 while she was sleeping and radiates to the neck, shoulder, left arm, but is not associated with N/V, SOB or sweating. EXAM: Mild distress DDX: Acute Coronary Syndrome, Unstable Angina, NSTEMI, Pericarditis, Myocarditis, Pulmonary Embolism, Musculoskeletal Chest Wall Pain, Pleuritis. PLAN: IV, IV Fluids, CBC, CMP, BNP, Troponins, UA, NTG, Antiemetics, Analgesics, ECG, CXR, Analgesics as needed. Aspirin already taken [employer] by patient. Final Dispo: Transfer to [place] Level of Complexity / Medical Decision Making: Moderate. PROBLEM LIST No recorded problems DIAGNOSIS (17:36 ABUS) FINAL: PRIMARY: Chest pain. DISPOSITION PATIENT: Disposition Type: Transfer, Disposition: Transfer to [facility], Disposition Transport: Ambulance, Condition: Good. (17:36 ABUS) Patient left the department. (17:55 AWAT) PRESCRIPTION No recorded prescriptions IMAGING *EKG: Image captured from scanner. (15:31 AWAT) *MEMORANDUM OF TRANSFER: Image captured from scanner. (17:09 AWAT) &a-1R&a+25V*p+0X*q7164U*c202B*c15G*c2P*p-0X&a-25V&a+1R Name: Beulah Quiroz : 1965 F51 MedRec: [id number] AcctNum: [id number] Prepared: SatJul 17, 2016 18:07 by Interface Page 9 of 12 [facility]ORD EMS TRANSPORT ORDERS: Image captured from scanner. (17:09 AWAT) CONSENTS: Image captured from scanner. (17:09 AWAT) SBARU: Image captured from scanner. (17:16 AWAT) TRANSFER WORKSHEET: Image captured from scanner. (17:26 AWAT) Page 2 added. Image captured from scanner. (17:26 AWAT) VITAL SIGNS: Image captured from scanner. (17:48 AWAT) *SUPPLY CHARGE SHEET: Image captured from scanner. (17:51 AWAT) ADMIN (17:36 ABUS) DIGITAL SIGNATURE: MD Turner Anthony. RESULTS (15:16 ABUS) RADIOLOGY: XR Chest 1 View Portable Observe DT: SatJul 17, 2016 14:13, CXRP AP CHEST: History: Chest pain. Date: 07-17-16 Comparison: 10-24-13 FINDINGS: AP view of the chest demonstrates the lungs to be well aerated. No evidence of active intrathoracic disease seen. No evidence of effusions, pneumonia, or pneumothorax is seen. IMPRESSION: Unremarkable AP view chest. POS: MED . LABORATORY: B type Natriuretic Peptide Collection DT: SatJul 17, 2016 14:35, B type Natriuretic Peptide Less than 10.0 pg/mL, Range (0-100). PTT Collection DT: SatJul 17, 2016 14:35, *PTT 40.8 - H SEC, Range (22.9-36.1). Magnesium Collection DT: SatJul 17, 2016 14:35, Magnesium 1.9 mg/dL, Range (1.6-2.6), NOTE: Higher values can be expected in females during menses . Comprehensive Metabolic Panel Collection DT: SatJul 17, 2016 14:35, Sodium 141 mmol/L, Range (136-145), Potassium 3.7 mmol/L, Range (3.5-5.1), Chloride 103 mmol/L, Range (98-107), Carbon Dioxide 23 mmol/L, Range (22-29), Anion Gap 19 mmol/L, Range (10-20), BUN (Urea Nitrogen) 16 mg/dL, Range (9.8-20.1), Creatinine 0.99 mg/dL, Range (0.6-1.1), &a-1R&a+25V*p+0X*p3244H*c202B*c15G*c2P*p-0X&a-25V&a+1R Name: Beulah Quiroz : 1965 F51 MedRec: [id number] AcctNum: [id number] Prepared: Fan Jul 17, 2016 18:07 by Interface Page 10 of 12 [facility] Estimated GFR-MDRD 59 , Reference Range for Estimated GFR: Greater than 90, mL/min/1.73 m2 NOTE: The MDRD equation has not been validated for use, with the elderly (over 70 years of age), women, patients with, serious comorbid condition or persons with extremes of body size, muscle, mass, or nutritional status. , Glucose 101 mg/dL, Range (70-105), Calcium 10.4 mg/dL, Range (7.8-10.44), Bilirubin, Total 0.9 mg/dL, Range (0.2-1.2), Protein, Total 7.3 g/dL, Range (6.0-8.3), NOTE: Plasma values are generally 0.3 to 0.5 g/dL higher than serum values, due to the presence of fibrinogen. , Albumin 4.4 g/dL, Range (3.5-5.0), Globulin 2.9 g/dL, Range (2.4-3.5), Alb/Glob Ratio 1.5 g/dL, Range (1.2-2.2), Alkaline Phosphatase 112 U/L, Range (40-150), AST (SGOT) 31 U/L, Range (5-34), ALT (SGPT) 49 U/L, Range (0-55). Cardiac Profile w/CKMB & TropI Collection DT: SatJul 17, 2016 14:35, CKMB 1.3 ng/mL, Range (0-6.6), Troponin I Less than 0.010 ng/mL, Range (< 0.028), Reference Range , 0.00 - 0.028 ng/mL Negative 0.029 - 0.29 ng/mL , Indeterminate Greater or Equal to 0.3 ng/mL Strongly suggests [place] , . CBC with Differential Collection DT: SatJul 17, 2016 14:35, White Blood Cell (WBC) Count 7.9 thou/uL, Range (4.8-10.8), Red Blood Cell (RBC) Count 4.68 mill/uL, Range (4.20-5.40), Hemoglobin 13.9 g/dL, Range (12.0-16.0), Hematocrit 41.3 %, Range (36.0-47.0), Mean Corpuscular Volume 88.3 fl, Range (81.0-99.0), Mean Corpuscular Hemoglobin 29.7 pg, Range (27.0-31.0), Mean Corpuscular HGB CONC 33.6 g/dL, Range (32.0-36.0), RBC Distribution Width 11.8 %, Range (11.5-14.5), Platelet Count 238 thou/uL, Range (130-400), Mean Platelet Volume 10.2 fL, Range (7.4-10.4), %Neutrophils 54.7 %, Range (42.0-75.0), %Lymphocytes 33.5 %, Range (21.0-51.0), %Monocytes 8.5 %, Range (0.0-10.0), %Eosinophils 2.3 %, Range (0.0-10.0), %Basophils 1.0 %, Range (0.0-1.0), #Neutrophils 4.3 thou/uL, Range (1.40-6.50), #Lymphocytes 2.6 thou/uL, Range (1.20-3.40), *#Monocytes 0.7 - H thou/uL, Range (0.11-0.59), #Eosinphils 0.2 thou/uL, Range (0.0-0.7), #Basophils 0.1 thou/uL, Range (0.0-0.2). &a-1R&a+25V*p+0X*v1687J*c202B*c15G*c2P*p-0X&a-25V&a+1R Name: Beulah Quiroz : 1965 [facility]ly [facility], [facility] MedRec: [id number] AcctNum: [id number] Prepared: SatJul 17, 2016 18:07 by Interface Page 11 of 12 [facility] RECORD Aceves: JACEY=MD Yue, Clem GARZA=RENEA Smith, Bruce DIAS=RENEA Crenshaw, Melissa &a-1R&a+25V*p+0X*p8664N*c202B*c15G*c2P*p-0X&a-25V&a+1R Name: Beulah Quiroz : 1965 [facility]ly [facility], [facility] MedRec: [id number] AcctNum: [id number] Prepared: SatJul 17, 2016 18:07 by Interface Page 12 of 12 [facility] MTDD
== END 2016-07-17 17:20 | disposition short-term general hospital (02) ==
LOC: MADERS 14:05
DX: R07.9 Chest pain, unspecified (principal); E78.5 Hyperlipidemia, unspecified; E78.00 Pure hypercholesterolemia, unspecified; F32.9 Major depressive disorder, single episode, unspecified
CPT/HCPCS: 36415; 71010; 80053; 82553; 83735; 83880; 84484; 85025; 85730; 93005; 96374; 96376; J2270